=== PATIENT | female | born 1980 | race Caucasian/White ===

== ENCOUNTER 2021-01-30 14:07 | Emergency (ER) | payer OTHER, SELFPAY ==
[2021-01-30 14:13] VITALS: BP 151/80; PULSE 75; RESP 16; TEMP 36.5; O2SAT 100
--- NOTE | 2021-01-30 14:33 | ED.BACK ---
HPI - Back Pain/Injury General Chief Complaint: Urogenital-Female Stated Complaint: uti symptoms Time Seen by Provider: 01/30/21 14:33 Source: patient Mode of arrival: ambulatory Limitations: no limitations History of Present Illness HPI Narrative: Dayami Ram is a 40 yo female with a PMH of GERD, who comes to express care with R sided mid back pain that started on 01/22 and is getting worse. States the pain can be elicited by certain movements is not complaining of dysuria and has not had gallbladder issues in the past. States that she has no nausea or vomiting, she denies doing any strenuous activity at home but when she leans forward are are raises her arms overhead her right back is more painful going up to as high as 8 out of 10 Related Data Home Medications Medication Instructions Recorded Confirmed aspirin 325 mg PO DAILY 01/30/21 01/30/21 omeprazole magnesium [Prilosec OTC] PO 01/30/21 Allergies Allergy/AdvReac Type Severity Reaction Status Date / Time Penicillins Allergy Unknown Rash Verified 01/30/21 14:14 topiramate Allergy Unknown SEIZURES Verified 01/30/21 14:14 cleaning products Allergy Mild rash Uncoded 01/30/21 14:14 oxyclean Allergy Mild closes Uncoded 01/30/21 14:14 throat up Review of Systems Review of Systems: Narrative: CONSTITUTIONAL: Denies fever, chills, sweats. EYES: Denies visual changes, redness, discharge. ENT: Denies rhinorrhea, congestion, sore throat, otalgia. CARDIOVASCULAR: Denies chest pain, palpitations, edema. RESPIRATORY: Denies dyspnea, wheezing, cough GASTROINTESTINAL: Denies abdominal pain, nausea, vomiting, diarrhea. GENITOURINARY: Denies dysuria, hematuria, abnormal discharge SKIN: Denies rash or itching. NEUROLOGIC: Denies numbness, or focal weakness. PSYCHIATRIC: Denies anxiety or depression. Right-sided mid back pain PMFSH Past Medical History Medical History (Updated 01/30/21 @ 15:02 by Valeria Butler CNP) GERD (gastroesophageal reflux disease) Surgical History Surgical History History of partial hysterectomy Family History Family History (Updated 01/30/21 @ 14:57 by Valeria Butler CNP) Other Hypertension Social History Social History (Updated 01/30/21 @ 14:58 by Valeria Butler CNP) Smoking status: Never smoker Alcohol intake: never Comments At time of signature, I agree with nursing past medical, surgical, social and family history. There is no relevant family history pertinent to the presenting complaint. Blood pressure is elevated due to pain as patient is being transferred to the ER for further evaluation Exam Narrative: Exam Narrative: GENERAL: This is an over -nourished, well-developed patient, in mild distress. HEAD: normocephalic, atraumatic. EYES: Sclera clear/white. Vision is grossly intact. EARS: External ears normal. Hearing grossly intact. NOSE: External nose normal without nasal discharge, nares without redness, no rhinorrhea. THROAT: Mucous membranes moist, NECK: Neck supple, CARDIOVASCULAR: Regular rate and rhythm without murmurs, gallops, or rubs. RESPIRATORY: Clear to auscultation. Breath sounds equal bilaterally. No wheezes, rales, or rhonchi. GASTROINTESTINAL: Abdomen soft, -tender, on abdominal exam she has pain along this suprapubic area with greatest pain in her right lower quadrant, she has pain with right leg lift, and is almost tearful when trying to sit up SKIN: warm, intact with no suspicious lesions or rash, good texture and turgor. NEURO: awake, alert, and oriented to person, place and time. There were no obvious focal neurologic abnormalities. Steady gait EXTREMITIES: Normal range of motion. BACK: tender R mid back without deformity. Pain when bends forward arm raises arms overhead, not with twisting Course Course Emergency Course[facility] back pain has no history of trauma or overuse injury is no
== END 2021-01-30 14:57 | disposition short-term general hospital (02) ==
PROVIDERS: Emergency Provider Nurse Practitioner
DX: R10.30 Lower abdominal pain, unspecified (principal); K21.9 Gastro-esophageal reflux disease without esophagitis; Z90.711 Acquired absence of uterus with remaining cervical stump
CPT/HCPCS: 81003; 99202; G0463

== ENCOUNTER 2021-01-30 15:15 | Emergency (ER) | payer OTHER, SELFPAY ==
--- NOTE | ~2021-01-30 | CT_ITS ---
EXAMINATION: CT abdomen pelvis w con EXAM DATE: 01/30/2021 16:31 INDICATION: Right sided abdominal pain, rebound tenderness. TECHNIQUE: Spiral CT of the abdomen and pelvis was performed following intravenous injection of 100 m L Omnipaque 350. Axial, coronal and sagittal images were reviewed. The dose-length product (DLP) fo r this examination was 1552.22 mGy-cm. The exposure was tailored according to patient size (auto mA exposure control), and iterative reconstruction (ASIR) was used as additional dose reduction techniqu e. There is no prior study for comparison. FINDINGS: There is moderate-sized supra umbilical hernia with short segment of the transverse colon b ulging inside. Abdominal wall defect does appear wide, no bowel . The liver, spleen, adrenal glands a nd pancreas are unremarkable. Gallbladder is unremarkable. No biliary obstruction. Portal and sple sania veins are patent. Kidneys enhance symmetrically. There is no hydronephrosis. The uterus is an teverted and morphologically normal. The bladder is unremarkable. There is no retroperitoneal or p elvic lymphadenopathy. 0 There are no findings to suggest appendicitis. The stomach and small bowel are unremarkable. There is expected amount of colonic stool. No free intraperitoneal gas. The heart is normal in size. T here are no pericardial or pleural effusions. The lung bases are unremarkable. There are no osteobl astic or osteolytic lesions identified. IMPRESSION: 1. No acute intra-abdominal findings. 2. Moderate-sized supra umbilical hernia containing nonobstructed transverse colon. Reviewed, dictated and finalized at location A. IMPRESSION: 1. No acute intra-abdominal findings. 2. Moderate-sized supra umbilical hernia containing nonobstructed transverse c olon.
[2021-01-30 15:17] VITALS: BP 175/97; PULSE 89; RESP 16; TEMP 36.5; O2SAT 100
[2021-01-30] MEDS: SODIUM CHLORIDE 0.9% IV 1,000 ML 999 ML IV CONT (15:47)
[2021-01-30 15:53] LABS: Basophils Percent Auto 0.2 % (0.2-1.2); Eosinophils Absolute Auto 0.1 K/mm3 (0-0.3); Eosinophils Percent Auto 1.3 % (0-4.4); Hematocrit 40.4 % (37.0-47.0); Hemoglobin 12.8 g/dL (12.0-15.0); Immature Granulocyte Absolute 0.02 K/mm3 (0.00-0.031); Immature Granulocyte Percent A 0.2 % (0-0.5); Lymphocytes Absolute Auto 1.85 K/mm3 (0.9-3.2); Lymphocytes Percent Auto 21.2 % (18.3-44.2); Mean Corpuscular HGB Conc 31.7 g/dl (32-36); Mean Corpuscular Hemoglobin 27.1 pg (26-34); Mean Corpuscular Volume 85.4 fl (80-100); Mean Platelet Volume 10.6 fl (7.4-10.4); Monocytes Absolute Auto 0.4 K/mm3 (0.1-0.6); Monocytes Percent Auto 4.1 % (2.6-8.5); Neutrophils Absolute Auto 6.4 K/mm3 (1.3-6.7); Platelet Count Result 269 k/mm3 (150-375); Red Blood Count 4.73 M/mm3 (4.2-5.4); Red Cell Distribution Width 13.2 % (11.5-14.5); White Blood Count 8.7 K/mm3 (4.5-10.0)
[2021-01-30 15:55] LABS: Add Urine Microscopic? NO; Appearance Urine Clear (Clear); Bilirubin Urine Negative (Negative); Blood Urine Negative (Negative); Color Urine Straw (Yellow); Glucose Urine UA Negative (Negative); Ketones Urine Negative (Negative); Leukocyte Esterase Ur Negative LEU/UL (Negative); Nitrate Urine Negative (Negative); Protein Urine Negative (Negative); Specific Grav Ur 1.009 (1.001-1.035); Urobilinogen Urine Negative mg/dL (<2.0)
[2021-01-30 16:05] LABS: Alanine Aminotransferase 14 U/L (4-35); Albumin Level 4.4 g/dL (3.5-5.1); Alkaline Phosphatase 86 U/L (38-126); Anion Gap 6 mmol/L (8-16); Aspartate Amino Transferase 16 U/L (14-36); Bilirubin,Total 0.2 mg/dL (0.2-1.3); Blood Urea Nitrogen 12 mg/dL (7-17); Calcium 9.7 mg/dL (8.4-10.2); Carbon Dioxide 30 mmol/L (22-30); Chloride 103 mmol/L (98-107); Estimated CRCL calculation 117 ml/min; Estimated Glomerular Filt Rate > 60; Glucose 86 mg/dL (65-105); Lipase 89 U/L (23-300); Sodium 139 mmol/L (137-145)
--- NOTE | 2021-01-30 16:42 | ED.ABDPAIN ---
HPI - Abdominal Pain General Chief Complaint: Back Pain/Injury Stated Complaint: sent from urgent care Time Seen by Provider: 01/30/21 15:28 Source: patient Mode of arrival: ambulatory Limitations: no limitations History of Present Illness HPI narrative: Patient is a 40-year-old female who presents to the ED complaining of right flank/back pain and right-sided abdominal pain. She reports back pain/flank pain started approximately 1 week ago and is increased over the past few days. She reports pain increases at times with movement. She also reports intermittent right-sided abdominal pain for a while she reports increased in the past few days. Reports pain with palpation. She reports intermittent nausea. She reports history of a partial hysterectomy. She denies taking [id number] medications for pain at this time. MD elicited complaint: abdominal pain and flank pain Related Data Home Medications Medication Instructions Recorded Confirmed aspirin 325 mg PO DAILY 01/30/21 01/30/21 omeprazole magnesium [Prilosec OTC] PO 01/30/21 Allergies Allergy/AdvReac Type Severity Reaction Status Date / Time Penicillins Allergy Unknown Rash Verified 01/30/21 14:14 topiramate Allergy Unknown SEIZURES Verified 01/30/21 14:14 cleaning products Allergy Mild rash Uncoded 01/30/21 14:14 oxyclean Allergy Mild closes Uncoded 01/30/21 14:14 throat up Review of Systems Review of Systems: Narrative: CONSTITUTIONAL: Denies fever, chills, or sweats. EYES: Denies visual changes, redness, or discharge. ENT: Denies rhinorrhea, congestion, sore throat, or otalgia. CARDIOVASCULAR: Denies chest pain, palpitations, or edema. RESPIRATORY: Denies cough or dyspnea. GASTROINTESTINAL: Reports right-sided flank/ abdominal pain and nausea GENITOURINARY: Denies dysuria or hematuria. SKIN: Denies rash or itching. MUSCULOSKELETAL: Denies back pain, joint pain, or myalgia. NEUROLOGIC: Denies headache, numbness, dizziness, or weakness. PSYCHIATRIC: Denies anxiety or depression. [facility] Past Medical History Medical History GERD (gastroesophageal reflux disease) Surgical History Surgical History History of partial hysterectomy Family History Family History Other Hypertension Social History Social History (Updated 01/30/21 @ 16:45 by JOHN Beckwith) Smoking status: Never smoker Alcohol intake: never Substance use: never Living arrangements: with family Gender identity (if verbalized by the patient): Female Exam Narrative: Exam Narrative: GENERAL: Well-appearing, well-nourished, and in no acute distress. HEAD: Normocephalic, atraumatic. EYES: EOMI. No redness or drainage. Conjunctiva are normal. ENT: Mucous membranes pink and moist. CHEST: No respiratory distress. Clear to auscultation. HEART: Regular rate and rhythm. No murmur appreciated. GI: Soft, generalized tenderness with palpation. No distention. Bowel sounds normal in all quadrants. MUSCULOSKELETAL: Right sided CVA tenderness with palpation EXTREMITIES: Normal range of motion. No edema. SKIN: Warm, dry, no rash. NEURO: No focal deficits. Alert and oriented x3. Gait steady. PSYCH: Normal affect. No signs of depression or anxiety. Course Vital Signs Vital signs: Vital Signs Temperature 36.5 C 01/30/21 15:17 Pulse Rate 89 01/30/21 15:17 Respiratory Rate 16 01/30/21 15:17 Blood Pressure 175/97 H 01/30/21 15:17 Pulse Oximetry 100 01/30/21 15:17 Temperature 36.5 C 01/30/21 15:17 Pulse Rate 89 01/30/21 15:17 Respiratory Rate 16 01/30/21 15:17 Blood Pressure 175/97 H 01/30/21 15:17 Pulse Oximetry 100 01/30/21 15:17 Reviewed-patient is informed that they may have pre-hypertension or hypertension based on a blood pressure reading. I recommend the patien
[2021-01-30 17:10] VITALS: BP 152/92; PULSE 85; RESP 17; O2SAT 99
== END 2021-01-30 17:11 | disposition home or self-care (01) ==
PROVIDERS: Emergency Provider Nurse Practitioner
DX: R10.9 Unspecified abdominal pain (principal); M54.5 Low back pain; K21.9 Gastro-esophageal reflux disease without esophagitis; K43.9 Ventral hernia without obstruction or gangrene; R03.0 Elevated blood-pressure reading, without diagnosis of hypertension
CPT/HCPCS: 36415; 74177; 80053; 81003; 83690; 85025; 96360; 99284; J7030; Q9967